=== PATIENT | female | born 1990 | race Caucasian/White ===

== ENCOUNTER 2017-11-03 17:01 | Emergency (ER) | payer SELFPAY ==
[~2017-11-03] VITALS: Ht 167.6 cm; Wt 85.0 kg
[2017-11-03] MEDS ORDERED: KETOROLAC 30MG/ML VIAL IV STA (19:25)
[2017-11-03] MEDS ORDERED: SODIUM CHLORIDE 0.9% 1,000 ML IV ONE (19:25)
[2017-11-03] MEDS ORDERED: ONDANSETRON HCL 4MG/2ML VIAL IV STA (19:25)
[2017-11-03 20:13] LABS: BASOPHILS % 0.2 % (0.0-2.0); EOSINOPHILS % 1.1 % (0.0-5.0); HEMOGLOBIN. 14.5 g/dL (12.0-16.0); LYMPHOCYTES % 20.2 % (20.0-50.0); MEAN CORPUSCULAR HEMOGLOBIN 29.9 pg (28.0-32.0); MEAN CORPUSCULAR VOLUME 90.4 fL (81.0-99.0); MEAN PLATELET VOLUME 8.4 fl (7.4-10.4); MONOCYTES % 4.9 % (2.0-8.0); NEUTROPHILS % 73.6 % (40.0-76.0); PLATELET 373 x1000/uL (130-400); RED BLOOD CELL COUNT 4.86 mill/uL (4.2-5.4); RED CELL DISTRIBUTION WIDTH 13.5 % (11.6-14.6)
[2017-11-03 20:16] LABS: CHLORIDE 105 mEq/L (98-107)
[2017-11-03 20:22] LABS: PROTHROMBIN TIME 10.2 sec (9.4-11.6)
[2017-11-03 20:36] LABS: CLARITY URINE CLEAR (CLEAR); COLOR URINE YELLOW (YELLOW); KETONES URINE NEGATIVE (NEGATIVE); LEUKOCYTE ESTERASE URINE 1+ (NEGATIVE); NITRITE URINE POSITIVE (NEGATIVE); OCCULT BLOOD URINE NEGATIVE (NEGATIVE); PH URINE 5.5 (4.5-8.0); PROTEIN URINE NEGATIVE (NEGATIVE); SPECIFIC GRAVITY URINE 1.022 (1.005-1.030); UROBILINOGEN URINE 0.2 E.U./dL (0.2-1.0)
[2017-11-03 22:23] VITALS: BP 124/72
== END 2017-11-03 23:39 | disposition home or self-care (01) ==
LOC: ER 17:59
DX: N30.00 Acute cystitis without hematuria (principal)
CPT/HCPCS: 36415; 76705; 80053; 81003; 81025; 83690; 85025; 85610; 96361; 96374; 96375; 99285; J1885; J2405; J7030

== ENCOUNTER 2018-08-12 23:34 | Emergency (ER) | payer SELFPAY ==
[~2018-08-12] VITALS: Ht 167.6 cm; Wt 82.0 kg
[2018-08-13] MEDS ORDERED: ACETAMINOPHEN 325MG TABLET PO ONE (00:30)
[2018-08-13 02:19] VITALS: BP 115/73
== END 2018-08-13 02:32 | disposition home or self-care (01) ==
LOC: ER 23:34
DX: H66.90 Otitis media, unspecified, unspecified ear (principal)
CPT/HCPCS: 87070; 87430; 99283

== ENCOUNTER → 2021-06-20 | Outpatient (CLI) | payer BC ==
[~2021-06-20] MED LIST: CEFAZOLIN SODIUM 1000MG/VIAL ONE; DEXAMETHASONE 4MG/ML 1ML VIAL ONE; FENTANYL CITRATE/PF 50MCG/ML 2ML VIAL ONE; GLYCOPYRROLATE 0.2 MG/ML 2ML VIAL ONE; METOCLOPRAMIDE HCL 10MG/2ML VIAL ONE; MIDAZOLAM HCL 2 MG/2 ML VIAL ONE; NEOSTIGMINE METHYLSULFATE 1MG/ML 10 ML VIAL ONE; ONDANSETRON HCL 4MG/2ML INJ ONE; PROPOFOL 200MG/20ML VIAL IV ONE; SUCCINYLCHOLINE CHLORIDE 200MG/10ML IV ONE
== END | disposition home or self-care (01) ==
LOC: LAB 10:29
PROVIDERS: ATTEND Surgery
DX: Z01.818 Encounter for other preprocedural examination (principal); Z20.822 Contact with and (suspected) exposure to COVID-19
CPT/HCPCS: 87426

== ENCOUNTER → 2021-06-23 | Day surgery (SDC) | payer BC ==
[~2021-06-23] VITALS: Ht 167.6 cm; Wt 84.8 kg
[~2021-06-23] MED LIST changes: +ACETAMINOPHEN 500MG TABLET ONE; +BUPIVACAINE HCL 0.5% (5MG/ML) 50ML ONE; -CEFAZOLIN SODIUM 1000MG/VIAL ONE; -DEXAMETHASONE 4MG/ML 1ML VIAL ONE; -FENTANYL CITRATE/PF 50MCG/ML 2ML VIAL ONE; -GLYCOPYRROLATE 0.2 MG/ML 2ML VIAL ONE; +HYDROCODONE/ACETAMINOPHEN 5/325MG TABLET PO PRN; +LACTATED RINGERS 1,000 ML IV SCH; -METOCLOPRAMIDE HCL 10MG/2ML VIAL ONE; -MIDAZOLAM HCL 2 MG/2 ML VIAL ONE; -NEOSTIGMINE METHYLSULFATE 1MG/ML 10 ML VIAL ONE; -ONDANSETRON HCL 4MG/2ML INJ ONE; -PROPOFOL 200MG/20ML VIAL IV ONE; +SKIN ADHESIVE 0.7 GM EA TOP ONE; -SUCCINYLCHOLINE CHLORIDE 200MG/10ML IV ONE
[2021-06-23 05:40] LABS: UCG SCREEN NEGATIVE
[2021-06-23] MEDS: HYDROMORPHONE HCL/PF 2MG/ML CPJ IV PRN ×4 (08:43→09:33)
[2021-06-23 10:13] VITALS: BP 127/74
== END | disposition home or self-care (01) ==
LOC: OR 05:18
PROVIDERS: ATTEND Surgery
DX: K80.10 Calculus of gallbladder with chronic cholecystitis without obstruction (principal); Z79.899 Other long term (current) drug therapy; Z98.890 Other specified postprocedural states
CPT/HCPCS: 47562; 81025; 88304; J0330; J0690; J1100; J1170; J2250; J2405; J2704; J2710; J2765; J3010; J3490

== ENCOUNTER → 2023-06-24 | Outpatient (CLI) | payer BC ==
[~2023-06-24] MED LIST changes: -ACETAMINOPHEN 500MG TABLET ONE; -BUPIVACAINE HCL 0.5% (5MG/ML) 50ML ONE; +GADOTERATE MEGLUMINE 5 MMOL/10 ML VIAL IV ONE; -HYDROCODONE/ACETAMINOPHEN 5/325MG TABLET PO PRN; -LACTATED RINGERS 1,000 ML IV SCH; -SKIN ADHESIVE 0.7 GM EA TOP ONE
== END | disposition home or self-care (01) ==
LOC: MRI 07:32
PROVIDERS: ATTEND Urology
DX: N36.8 Other specified disorders of urethra (principal); N36.2 Urethral caruncle; N88.8 Other specified noninflammatory disorders of cervix uteri; M79.89 Other specified soft tissue disorders
CPT/HCPCS: 72197; A9577

== ENCOUNTER → 2023-08-19 | Day surgery (SDC) | payer BC ==
[~2023-08-19] VITALS: Ht 167.6 cm; Wt 95.7 kg
[~2023-08-19] MED LIST changes: +CEFAZOLIN SODIUM 1000MG/VIAL ONE; +DEXAMETHASONE 4MG/ML 1ML VIAL ONE; +FENTANYL CITRATE/PF 50MCG/ML 2ML VIAL IV PRN; +FENTANYL CITRATE/PF 50MCG/ML 2ML VIAL ONE; -GADOTERATE MEGLUMINE 5 MMOL/10 ML VIAL IV ONE; +HYDROMORPHONE HCL/PF 2MG/ML CPJ IV PRN; +KETOROLAC 30MG/ML VIAL ONE; +LACTATED RINGERS 1,000 ML IV SCH; +LIDOCAINE HCL 1% 10 MG/ML 10ML VIAL ONE; +LIDOCAINE HCL 1% 20ML VIAL (Pyxis) INJ ONE; +LIDOCAINE HCL 1%/EPI 1:200,000 30 ML VIAL ONE; +MEPERIDINE HCL/PF 25MG/ML CPJ IV PRN; +METRONIDAZOLE 0.75% VAG GEL 70GM VG ONE; +MIDAZOLAM HCL 2 MG/2 ML VIAL ONE; +NALOXONE HCL 0.4MG/ML VIAL IV PRN; +ONDANSETRON HCL 4MG/2ML INJ IV PRN; +PHENYLEPHRINE HCL 10 MG/ML 1ML (IV VIAL) IV ONE; +PROPOFOL 200MG/20ML VIAL IV ONE; +SUCCINYLCHOLINE CHLORIDE 200MG/10ML IV ONE
[2023-08-19 06:46] LABS: UCG SCREEN NEGATIVE
[2023-08-19 09:58] VITALS: BP 110/66; PULSE 73; RESP 14
== END | disposition home or self-care (01) ==
LOC: OR 05:48
PROVIDERS: ATTEND Urology
DX: N36.1 Urethral diverticulum (principal); Z90.49 Acquired absence of other specified parts of digestive tract; Z98.890 Other specified postprocedural states; Z79.899 Other long term (current) drug therapy
CPT/HCPCS: 81025; 88304; 53230; J3010; J0690; J1100; J1885; J3490 ×3; J2250; J2405; J2370; J2704; J0330; J2175

== ENCOUNTER 2025-08-24 16:13 | Emergency (ER) | payer BC ==
[~2025-08-24] VITALS: Ht 167.6 cm; Wt 99.0 kg
[2025-08-24 16:20] VITALS: O2SAT 98
[2025-08-24 16:59] LABS: BASOPHILS % 0.3 % (0.0-2.0); EOSINOPHILS % 1.1 % (0.0-5.0); HEMATOCRIT. 37.0 % (36.0-48.0); HEMOGLOBIN. 12.4 g/dL (12.0-16.0); LYMPHOCYTES % 20.9 % (20.0-50.0); MEAN PLATELET VOLUME 8.5 fl (7.4-10.4); MONOCYTES % 7.0 % (2.0-8.0); NEUTROPHILS % 70.7 % (40.0-76.0); PLATELET 318 x1000/uL (130-400); RED BLOOD CELL COUNT 4.17 mill/uL (4.2-5.4); RED CELL DISTRIBUTION WIDTH 13.7 % (11.6-14.6)
[2025-08-24 17:20] LABS: CREATININE 0.6 mg/dL (0.6-1.0)
[2025-08-24 17:21] LABS: UREA NITROGEN BLOOD 7 mg/dL (9-23)
[2025-08-24 19:55] VITALS: BP 128/74; PULSE 84; RESP 20; TEMP 36.8; O2SAT 100
== END 2025-08-24 20:05 | disposition home or self-care (01) ==
LOC: ER 16:13
DX: O20.0 Threatened abortion (principal); Z3A.11 11 weeks gestation of pregnancy
CPT/HCPCS: 36415; 76801; 80048; 84702; 85025; 99284